=== PATIENT | male | born 1955 | race American Indian/Alaskan Native ===

== ENCOUNTER 2018-11-20 18:53 | Emergency (ER) | payer SELFPAY ==
--- NOTE | 2018-11-20 19:06 | Emergency Department Report ---
Blank Doc - Documentation Documentation: This is a 63-year-old male that presents with left foot and right elbow pain w ith swelling. Denies any trauma. This initial assessment/diagnostic orders/clinical plan/treatment(s) is/are subject to change based on patient's health status, clinical progression and re-assessment by fellow clinical providers in the ED. Further treatment and workup at subsequent clinical providers discretion. Patient/guardians urged not to elope from the ED as their condition may be serious if not clinically assessed and managed. Initial orders include: 1- Patient sent to [facility] for further evaluation and treatment
[2018-11-20 20:18] VITALS: BP 181/111
--- NOTE | 2018-11-20 21:31 | Emergency Department Report ---
ED General Adult HPI - General Chief complaint: Extremity Injury, Lower Stated complaint: RT ARM/LT FOOT SWOLLEN Time Seen by Provider: 11/20/18 19:05 Source: patient Mode of arrival: Ambulatory Limitations: No Limitations - History of Present Illness Initial comments: 63-year-old -[place] male with past medical history arthritis, bilateral knee replacements, recurrent foot and arm swelling since emergency Department for evaluation of an episode of swelling to his left foot and right arm. He states that he's been [facility] in the past and it gave him some medication, which she is utilize for the swelling, however, had not had it for several months, so he had discarded it. Swelling reemerge today and he is out of the medication which she cannot recall the name presents to emergency department for evaluation. Denies chest pain, palpitations, nausea, vomiting, calf pain, shortness of breath. He reports no history of any of any in the blood clots in his hasn't appointment at the [facility] in the morning. He denies any trauma reports any new medications. No fever, chills, sweats. -: Gradual Radiation: non-radiation Severity scale (0 -10): 6 Quality: aching Consistency: constant Improves with: none Worsens with: none Associated Symptoms: denies other symptoms. denies: chest pain, cough, diaphor esis, loss of appetite, malaise, nausea/vomiting, rash, shortness of breath, syncope, weakness Treatments Prior to Arrival: none - Related Data Previous Rx's Medication Instructions Recorded Last Taken Type Ketorolac [Toradol] 10 mg PO Q8HR PRN #15 tablet 11/20/18 Unknown Rx Allergies Allergy/AdvReac Type Severity Reaction Status Date / Time No Known Allergies Allergy Unverified 11/20/18 18:55 ED Review of Systems ROS: Stated complaint: RT ARM/LT FOOT SWOLLEN Other details as noted in HPI Constitutional: denies: chills, fever Eyes: denies: eye pain, eye discharge, vision change ENT: denies: ear pain, throat pain Respiratory: denies: cough, shortness of breath, wheezing Cardiovascular: denies: chest pain, palpitations Endocrine: no symptoms reported Gastrointestinal: denies: abdominal pain, nausea, diarrhea Genitourinary: denies: urgency, dysuria Musculoskeletal: joint swelling. denies: back pain, arthralgia Skin: denies: rash, lesions Neurological: denies: headache, weakness, paresthesias Psychiatric: denies: anxiety, depression Hematological/Lymphatic: denies: easy bleeding, easy bruising ED Past Medical Hx - Past Medical History Previous Medical History?: No - Surgical History Additional Surgical History: rt knee - Social History Smoking Status: Current Every Day Smoker Substance Use Type: None - Medications Home Medications: Home Medications Medication Instructions Recorded Confirmed Last Taken Type Ketorolac [Toradol] 10 mg PO Q8HR PRN #15 tablet 11/20/18 Unknown Rx ED Physical Exam - General Limitations: No Limitations General appearance: alert, in no apparent distress - Head Head exam: Present: atraumatic, normocephalic - Eye Eye exam: Present: normal appearance, PERRL, EOMI - ENT ENT exam: Present: mucous membranes moist - Neck Neck exam: Present: normal inspection - Respiratory Respiratory exam: Present: normal lung sounds bilaterally. Absent: respiratory distress - Cardiovascular Cardiovascular Exam: Present: regular rate, normal rhythm. Absent: systolic murmur, diastolic murmur, rubs, gallop - GI/Abdominal GI/Abdominal exam: Present: soft, normal bowel sounds - Rectal Rectal exam: Present: deferred - Extremities Exam Extremities exam: Present: normal inspection - Expanded Upper Extremity Exam Right Elbow exam: Present: normal inspection, full ROM Forearm Wrist exam: Present: abrasion (small abrasion to the right forearm with swelling located to that region. No cellulitis or warmth noted.) Hand Wrist exam: Present: normal inspection, full ROM. Absent: laceration, ecchymosis, crepidus, amputation, nail avulsion - Expanded Lower Extremity Exam Left Lower Leg exam: Present: normal inspection, full ROM. Absent: swelling, palpable cord, Wm's sign Ankle exam: Present: normal inspection, full ROM. Absent: swelling Foot/Toe exam: Present: tenderness, swelling. Absent: laceration, ecchymosis, deformity, crepidus, dislocation, erythema, amputation, calcaneal tenderness Neuro vascular tendon exam: Present: no vascular compromise. Absent: pulse deficit, abnormal cap refill, motor deficit - Back Exam Back exam: Present: normal inspection - Neurological Exam Neurological exam: Present: alert, oriented X3 - Psychiatric Psychiatric exam: Present: normal affect, normal mood - Skin Skin exam: Present: warm, dry, intact, normal color. Absent: rash ED Course Vital Signs 11/20/18 11/20/18 19:05 20:17 Temperature 98 F Pulse Rate 64 70 Respiratory 18 20 Rate Blood Pressure 169/104 Blood Pressure 181/111 [Left] O2 Sat by Pulse 98 99 Oximetry ED Medical Decision Making - Medical Decision Making 63-year-old -[place] male[facility] recurrent swelling to extremities. Swelling often switches from left foot to the right foot depending upon the time of the year or month or activity. History of bilateral knee replacements, most recently was placed on the right side one year ago and the swelling Started after the knee replacement. Medication was provided which helped the swelling. However, he has discarded this medication at that swelling a few hours. No calf pain with ambulation. No cramping. No numbness or tingling. No direct trauma. No fevers. No chest pain or palpitations. Has an appointment with the [facility] in the morning. No signs of impending doom, severe infection, fracture, instability. Critical care attestation.: If time is entered above; I have spent that time in minutes in the direct care of this critically ill patient, excluding procedure time. ED Disposition Clinical Impression: Swelling of left foot, Abrasion of arm, right Disposition: [id number] TO HOME OR SELFCARE Is pt being admited?: No Does the pt Need Aspirin: No Condition: Stable Instructions: Abrasion (ED), Osteoarthritis (ED), Naproxen (By mouth) Additional Instructions: Please keep your appointment with the [facility] in the morning (11-21-2018) as we discussed. She should he develop any chest pain, shortness of breath, coughing up blood, dizziness, severe pain, please return to the emergency department Prescriptions: Ketorolac [Toradol] 10 mg PO Q8HR PRN #15 tablet PRN Reason: Pain Referrals: AURA JOSEPH MD [Primary Care Provider] - 3-5 Days
== END 2018-11-20 21:55 | disposition home or self-care (01) ==
LOC: ED 18:53
DX: S40.811A Abrasion of right upper arm, initial encounter (principal); F17.200 Nicotine dependence, unspecified, uncomplicated; X58.XXXA Exposure to other specified factors, initial encounter; Y93.89 Activity, other specified; Y92.89 Other specified places as the place of occurrence of the external cause; Y99.8 Other external cause status
CPT/HCPCS: 99282